=== PATIENT | female | born 1930 | race Caucasian/White ===

== ENCOUNTER 2018-02-06 08:18 | Emergency (ER) | payer OTHER ==
[~2018-02-06] VITALS: Ht 162.6 cm; Wt 61.2 kg
[~2018-02-06 08:18] MED LIST: CPR500 PO; ISR/30 PO; LEVO25TA5 PO; LISI-730 PO; MTR500 PO; NTRGSL/4 UT; PANT1TAB3 PO; POLY335025 PO; POTA20TA13 PO; RXC5 PO
[2018-02-06] MEDS ORDERED: ACETAMINOPHEN IV 650 MG in EMPTY BAG 0 ML IV STA (08:25)
[2018-02-06] MEDS ORDERED: NITROGLYCERIN 2% OINTMENT 30GM TUBE EXT ONE (08:30)
--- NOTE | 2018-02-06 08:35 | EMERGENCY ROOM VISIT NOTE ---
History Report prepared by Rodrigo: Inder Cobos Under the Supervision of: Dr. Kobi Michael M.D. First contact with patient: 08:21 Chief Complaint: SHORTNESS OF BREATH Stated Complaint: DIFF BREATHING History of Present Illness The patient is an 87 year old female who presents to the Emergency Room with complaints of persistent left sided chest pain. She rates the severity of the pain as a 7/10. There is no radiation of the pain, but it is worsened with deep inhalation. She complains of persistent shortness of breath for the past two days as well. The patient arrived to the Emergency Department via EMS who administered 2 sprays of Nitroglycerin, Aspirin, and a DuoNeb treatment. These medications improved her symptoms. She also complains of a headache. She denies any fevers or cough. The patient has no history of heart attack and does not wear oxygen at home. She did not take any of her morning medications. Source of History: patient Onset: Two days Position: chest (left) Symptom Intensity: 7/10 Timing: other (Persistent) Modifying Factors (Relieving): other (Nitro, aspirin, DuoNeb) Associated Symptoms: + headache, No fevers, No cough Review of Systems See HPI for pertinent positives & negatives. A total of 10 systems reviewed and were otherwise negative. Past Medical & Surgical Medical Problems: (1) Anxiety (2) Benign hypertension (3) Coronary artery disease (4) Placement of stent Family History Cancer Social History Smoking Status: Never Smoker Drug Use: none Marital Status: Housing Status: lives with family Occupation Status: retired Current/Historical Medications Scheduled Amitriptyline HCl (Amitriptyline HCl), 25 MG PO BID Amlodipine Besylate (Amlodipine Besylate), 5 MG PO DAILY Aspirin (Aspirin), 81 MG PO QPM Atenolol (Tenormin), 100 MG PO DAILY Atorvastatin (Lipitor), 10 MG PO DAILY Clonidine HCl (Clonidine HCl), 0.2 MG PO BID Clopidogrel Bisulfate (Clopidogrel), 75 MG PO DAILY Levothyroxine Sodium (Levothyroxine Sodium), 25 MCG PO DAILY Lisinopril (Lisinopril), 20 MG PO DAILY Potassium Chloride Microencaps (Potassium Chloride Er), 20 MEQ PO DAILY Ranitidine HCl (Ranitidine HCl), 150 MG PO HS Scheduled PRN Nitroglycerin (Nitrostat), 0.4 MG UT UD PRN for Chest Pain Allergies Coded Allergies: No Known Allergies (Unverified , 02/06/18) Physical Exam Vital Signs Date Time Temp Pulse Resp B/P (MAP) Pulse Ox O2 Delivery O2 Flow Rate FiO2 02/06/18 11:33 82 24 211/90 92 Room Air 02/06/18 10:35 55 20 176/77 97 Room Air 02/06/18 09:48 61 22 196/76 97 Room Air 02/06/18 08:31 66 02/06/18 08:25 36.4 68 18 192/84 97 Room Air 02/06/18 08:25 97 Room Air Physical Exam GENERAL: Patient is in no acute distress. HEENT: No acute trauma, normocephalic atraumatic, mucous membranes moist, no nasal congestion, no scleral icterus. NECK: No stridor, no adenopathy, no meningismus, trachea is midline. CHEST: Tender to the left anterior chest wall, along the medial breast. LUNGS: There are scattered crackles in the right lung, especially at the right base. No wheezing, left lung clear HEART: Without murmurs gallops or rubs, regular rate and rhythm. ABDOMEN: Soft, nontender, bowel sounds positive, no hernias, no peritonitis. EXTREMITIES: No cyanosis. Mild bilateral pedal edema, full range of motion of all the joints without pain or difficulty, no signs for acute trauma. NEUROLOGIC: Oriented x 3, no acute motor or sensory deficits, no focal weakness. SKIN: No rash, no jaundice, no diaphoresis. Medical Decision & Procedures ER Provider Diagnostic Interpretation: Radiology results as stated below per my review and radiologist interpretation: CHEST ONE VIEW PORTABLE CLINICAL HISTORY: EVALUATE RESPIRATORY DISTRESS.DYSPNEA COMPARISON STUDY: 03/24/2016 FINDINGS: Chronic elevation right hemidiaphragm. Mild stable cardia megaly. Surgical clips left axilla. No focal infiltrate. IMPRESSION: Chronic and postoperative change. No acute process. The above report was generated using voice recognition software. It may contain grammatical, syntax or spelling errors. Electronically signed by: Chandan Alvarez M.D. 02/06/2018 8:44 AM Dictated Date/Time: 02/06/2018 8:44 AM (CHEST FOR PE) ANGIO WITH CT DOSE: 184.75 mGy.cm HISTORY: Chest pain. Dyspnea. TECHNIQUE: Multiaxial CT images of the chest were performed following the intravenous administration of contrast to evaluate the pulmonary arteries. Maximal intensity projection images were also obtained. A dose lowering technique was utilized adhering to the principles of ALARA. COMPARISON STUDY: None. FINDINGS: There is a normal caliber thoracic aorta with no evidence for dissection. There is no evidence for pulmonary embolus. No pleural effusions. No pneumothorax. The liver and spleen are unremarkable. No mediastinal or hilar lymphadenopathy. The central airways are patent. The lungs are clear. Minimal basilar atelectasis. Moderate degenerative changes thoracic spine. IMPRESSION: No evidence for pulmonary embolus. No evidence for focal infiltrate. Minimal bibasilar atelectasis. The above report was generated using voice recognition software. It may contain grammatical, syntax or spelling errors. Electronically signed by: Chandan Alvarez M.D. 02/06/2018 9:59 AM Dictated Date/Time: 02/06/2018 9:49 AM Laboratory Results 02/06/18 07:49 Red Blood Count 5.37, Mean Corpuscular Volume 83.6, Mean Corpuscular Hemoglobin 26.6, Mean Corpuscular Hemoglobin Concent 31.8, Mean Platelet Volume 10.3, Neutrophils (%) (Auto) 56.4, Lymphocytes (%) (Auto) 30.9, Monocytes (%) (Auto) 9.8, Eosinophils (%) (Auto) 2.0, Basophils (%) (Auto) 0.7, Neutrophils # (Auto) 3.06, Lymphocytes # (Auto) 1.68, Monocytes # (Auto) 0.53, Eosinophils # (Auto) 0.11, Basophils # (Auto) 0.04 02/06/18 07:49 Test 02/06/18 07:49 02/06/18 08:53 White Blood Count 5.43 K/uL (4.8-10.8) Red Blood Count 5.37 M/uL (4.2-5.4) Hemoglobin 14.3 g/dL (12.0-16.0) Hematocrit 44.9 % (37-47) Mean Corpuscular Volume 83.6 fL (80-100) Mean Corpuscular Hemoglobin 26.6 pg (25-34) Mean Corpuscular Hemoglobin Concent 31.8 g/dl (32-36) Platelet Count 280 K/uL (130-400) Mean Platelet Volume 10.3 fL (7.4-10.4) Neutrophils (%) (Auto) 56.4 % Lymphocytes (%) (Auto) 30.9 % Monocytes (%) (Auto) 9.8 % Eosinophils (%) (Auto) 2.0 % Basophils (%) (Auto) 0.7 % Neutrophils # (Auto) 3.06 K/uL (1.4-6.5) Lymphocytes # (Auto) 1.68 K/uL (1.2-3.4) Monocytes # (Auto) 0.53 K/uL (0.11-0.59) Eosinophils # (Auto) 0.11 K/uL (0-0.5) Basophils # (Auto) 0.04 K/uL (0-0.2) RDW Standard Deviation 45.2 fL (36.4-46.3) RDW Coefficient of Variation 14.7 % (11.5-14.5) Immature Granulocyte % (Auto) 0.2 % Immature Granulocyte # (Auto) 0.01 K/uL (0.00-0.02) Anion Gap 8.0 mmol/L (3-11) Est Creatinine Clear Calc Drug Dose 49.0 ml/min Estimated GFR () 84.6 Estimated GFR (Non- 73.0 BUN/Creatinine Ratio 17.0 (10-20) Calcium Level 9.0 mg/dl (8.5-10.1) Total Bilirubin 0.7 mg/dl (0.2-1) Aspartate Amino Transf (AST/SGOT) 19 U/L (15-37) Alanine Aminotransferase (ALT/SGPT) 21 U/L (12-78) Alkaline Phosphatase 121 U/L (45-117) Troponin I < 0.015 ng/ml (0-0.045) Total Protein 7.4 gm/dl (6.4-8.2) Albumin 3.7 gm/dl (3.4-5.0) Globulin 3.7 gm/dl (2.5-4.0) Albumin/Globulin Ratio 1.0 (0.9-2) Thyroid Stimulating Hormone (TSH) 3.040 uIu/ml (0.300-4.500) Prothrombin Time 10.6 SECONDS (9.0-12.0) Prothromb Time International Ratio 1.0 (0.9-1.1) Activated Partial Thromboplast Time 24.9 SECONDS (21.0-31.0) Partial Thromboplastin Ratio 1.0 Laboratory results reviewed by me. Medications Administered Medications (Trade) Dose Ordered Sig/Meche Route Start Time Stop Time Status Last Admin Dose Admin Nitroglycerin (Nitroglycerin 2% Oint) 2 inch NOW ONCE EXT 02/06/18 08:30 02/06/18 08:32 DC 02/06/18 08:45 2 INCH Acetaminophen 650 mg/Empty Bag 65 ml @ 260 mls/hr NOW STAT IV 02/06/18 08:25 02/06/18 08:39 DC 02/06/18 08:46 260 MLS/HR Atenolol (Tenormin Tab) 100 mg NOW ONCE PO 02/06/18 09:15 02/06/18 09:16 DC 02/06/18 09:15 100 MG Al Hydroxide/Mg Hydroxide (Maalox Susp) 30 ml STK-MED ONCE .ROUTE 02/06/18 11:24 02/06/18 11:25 DC 02/06/18 11:26 30 ML Hydralazine HCl (HydrALAZINE INJ) 20 mg STK-MED ONCE .ROUTE 02/06/18 11:29 02/06/18 11:30 DC 02/06/18 11:32 20 MG Pantoprazole Sodium (Protonix Tab) 40 mg NOW STAT PO 02/06/18 11:44 02/06/18 12:43 DC 02/06/18 11:44 40 MG ECG Per My Interpretation Indication: chest pain, SOB/dyspnea Rate (beats per minute): 66 Rhythm: normal sinus Findings: nonspecific-ST abn, other (No DAVE, no PVCs) ED Course 0824: The patient was evaluated in room C6. A complete history and physical exam was performed. 0825: Ordered Acetaminophen 65 mL @ 250 mL/hr IV. 0830: Ordered Nitroglycerin 2 inch EXT 0915: Ordered Atenolol 100 mg PO. 1019: I checked on the patient at this time. She is feeling better after treatment. The patient remains agreeable to an inpatient stay. 1037: I discussed the case with Dr. Jenn Kennedy Hospitalist. He will evaluate the patient for further treatment. Medical Decision Differential Diagnosis includes; musculoskeletal pain, myocardial infarction, aortic disease, pulmonary emboli, pneumonia, pneumothorax, and angina. There is no leukocytosis or concerning anemia. No significant electrolyte abnormality, kidney failure or hepatitis. EKG shows a normal sinus rhythm, no acute ischemia. Cardiac enzyme testing 1 is not consistent with acute cardiac injury. Chest x-ray does not show pneumonia, mediastinal widening or pneumothorax. Chest CT does not show PE, no evidence for aortic dissection. On exam, the patient did have some reproducible left chest pain by palpation. The patient had already received oral aspirin, no further aspirin was given. She was given IV Tylenol, nitroglycerin paste. She received her normal dose of oral metoprolol. The patient's pain is somewhat improved, she seems comfortable. At this point, the cause for the pain is unclear, given her age and cardiac risk factors, further cardiac workup was felt warranted. She requires a hospital stay. I spoke with the patient and case management. The on-call hospitalist was consulted. Medication Reconcilliation Current Medication List: was personally reviewed by me Blood Pressure Screening Patient's blood pressure: Elevated blood pressure Referred to hospitalist. Consults Time Called: 1030 Consulting Physician: Dr. Jenn Kennedy Hospitalist Returned Call: 1037 I discussed the case with Dr. Jenn Kennedy Hospitalist. He will evaluate the patient for further treatment. Impression Primary Impression: Left sided chest pain Additional Impression: SOB (shortness of breath) Scribe Attestation The scribe's documentation has been prepared under my direction and personally reviewed by me in its entirety. I confirm that the note above accurately reflects all work, treatment, procedures, and medical decision making performed by me. Departure Information Dispostion Being Evaluated By Hospitalist Patient Instructions My [facility] Problem Qualifiers
[2018-02-06 08:40] LABS: BASO % 0.7 %; BASO ABS # 0.04 K/uL (0-0.2); EOS ABS # 0.11 K/uL (0-0.5); HEMATOCRIT 44.9 % (37-47); HEMOGLOBIN 14.3 g/dL (12.0-16.0); IG# 0.01 K/uL (0.00-0.02); LYMPH % 30.9 %; LYMPH ABS # 1.68 K/uL (1.2-3.4); MEAN CELL VOLUME 83.6 fL (80-100); MEAN CORPUSCULAR HEMOGLOBIN 26.6 pg (25-34); MEAN CORPUSCULAR HGB CONC 31.8 g/dl (32-36); MEAN PLATELET VOLUME 10.3 fL (7.4-10.4); MONO % 9.8 %; MONO ABS # 0.53 K/uL (0.11-0.59); NEUT % 56.4 %; NEUT ABS # 3.06 K/uL (1.4-6.5); PLATELET COUNT 280 K/uL (130-400); RED CELL DISTRIBUTION WIDTH CV 14.7 % (11.5-14.5); RED CELL DISTRIBUTION WIDTH SD 45.2 fL (36.4-46.3); WHITE BLOOD COUNT 5.43 K/uL (4.8-10.8)
[2018-02-06] MEDS ORDERED: OPTIRAY 320 IV PRN (08:45)
--- NOTE | 2018-02-06 08:45 | DIAGNOSTIC IMAGING REPORT ---
CHEST ONE VIEW PORTABLE CLINICAL HISTORY: EVALUATE RESPIRATORY DISTRESS.DYSPNEA COMPARISON STUDY: 03/24/2016 FINDINGS: Chronic elevation right hemidiaphragm. Mild stable cardia megaly. Surgical clips left axilla. No focal infiltrate. IMPRESSION: Chronic and postoperative change. No acute process. The above report was generated using voice recognition software. It may contain grammatical, syntax or spelling errors. Electronically signed by: Chanadn Alvarez M.D. 02/06/2018 8:44 AM Dictated Date/Time: 02/06/2018 8:44 AM
[2018-02-06 08:56] LABS: ALBUMIN 3.7 gm/dl (3.4-5.0); ALKALINE PHOSPHATASE 121 U/L (45-117); ALT/SGPT 21 U/L (12-78); AST/SGOT 19 U/L (15-37); BLOOD UREA NITROGEN 12 mg/dl (7-18); CARBON DIOXIDE 25 mmol/L (21-32); CREATININE 0.73 mg/dl (0.60-1.20); GLUCOSE 113 mg/dl (70-99); POTASSIUM 3.3 mmol/L (3.5-5.1); SODIUM 140 mmol/L (136-145); TOTAL PROTEIN 7.4 gm/dl (6.4-8.2)
[2018-02-06] MEDS ORDERED: LPT10 PO (09:02)
[2018-02-06] MEDS ORDERED: CTP2 PO (09:02)
[2018-02-06] MEDS ORDERED: AMT25 PO (09:02)
[2018-02-06] MEDS ORDERED: ASPI-461 PO (09:02)
[2018-02-06] MEDS ORDERED: PLV75 PO (09:02)
[2018-02-06] MEDS ORDERED: RANI150T2 PO (09:02)
[2018-02-06] MEDS ORDERED: NRV/5 PO (09:02)
[2018-02-06] MEDS ORDERED: LISI-726 PO (09:02)
[2018-02-06 09:12] LABS: PTT PATIENT 24.9 SECONDS (21.0-31.0)
--- NOTE | 2018-02-06 10:00 | DIAGNOSTIC IMAGING REPORT ---
(CHEST FOR PE) ANGIO WITH CT DOSE: 184.75 mGy.cm HISTORY: Chest pain. Dyspnea. TECHNIQUE: Multiaxial CT images of the chest were performed following the intravenous administration of contrast to evaluate the pulmonary arteries. Maximal intensity projection images were also obtained. A dose lowering technique was utilized adhering to the principles of ALARA. COMPARISON STUDY: None. FINDINGS: There is a normal caliber thoracic aorta with no evidence for dissection. There is no evidence for pulmonary embolus. No pleural effusions. No pneumothorax. The liver and spleen are unremarkable. No mediastinal or hilar lymphadenopathy. The central airways are patent. The lungs are clear. Minimal basilar atelectasis. Moderate degenerative changes thoracic spine. IMPRESSION: No evidence for pulmonary embolus. No evidence for focal infiltrate. Minimal bibasilar atelectasis. The above report was generated using voice recognition software. It may contain grammatical, syntax or spelling errors. Electronically signed by: Chandan Alvarez M.D. 02/06/2018 9:59 AM Dictated Date/Time: 02/06/2018 9:49 AM
[2018-02-06] MEDS ORDERED: ALUMINUM/MAGNESIUM SUSP 30 ML UDC ONE (11:24)
[2018-02-06] MEDS ORDERED: HydrALAZINE HCL 20 MG/ML VIAL ONE (11:29)
[2018-02-06] MEDS ORDERED: NURSING VERBAL MED ORDER ONE ×2 (11:30)
[2018-02-06] MEDS ORDERED: PANTOprazole SOD 40 MG TAB PO STA (11:44)
[2018-02-06] MEDS ORDERED: MAGNESIUM HYDROXIDE SUSP 30 ML UDC PO PRN (11:45)
[2018-02-06] MEDS ORDERED: HydrALAZINE HCL 20 MG/ML VIAL IV. PRN (11:45)
[2018-02-06] MEDS ORDERED: ONDANSETRON INJ 2 MG/ML 2 ML VIAL IV PRN (11:45)
[2018-02-06] MEDS ORDERED: POLYETHYLENE (MIRALAX) 17 GM PACK PO PRN (11:45)
[2018-02-06] MEDS ORDERED: ACETAMINOPHEN 325 MG TAB PO PRN (11:45)
[2018-02-06] MEDS ORDERED: NITROGLYCERIN 0.4 MG SL PER TAB CHARGE UT PRN (11:45)
[2018-02-06] MEDS ORDERED: DICLOFENAC SOD 1% GEL 100 GM TUBE EXT PRN (11:45)
[2018-02-06] MEDS ORDERED: ALUMINUM/MAGNESIUM/SIMETH (MAALOX MAX) 30 ML UDC PO PRN ×2 (11:45)
[2018-02-06] MEDS ORDERED: ZOLPIDEM TARTRATE 5 MG TAB PO PRN (11:45)
[2018-02-06] MEDS ORDERED: NITROGLYCERIN 0.4 MG SL PER TAB CHARGE SL PRN (11:45)
--- NOTE | 2018-02-06 11:56 | History and Physical ---
History & Physical Date of Service Feb 06, 2018. History & Physical chest pain, headache,HTN, [id number]
[2018-02-06 12:03] VITALS: Ht 162.6 cm; Wt 61.2 kg
--- NOTE | 2018-02-06 12:56 | HISTORY & PHYSICAL EXAMINATION ---
DATE OF ADMISSION: 02/07/2016 This is observation H and P, 35 minutes. CHIEF COMPLAINT: Shortness of breath and chest pain. HISTORY OF PRESENT ILLNESS: An 87-year-old white female with significant past medical history of CAD, stent, anxiety, hypertension, hypothyroidism, dyslipidemia, appendectomy, left breast mass excision and also has a history of acute gallstone pancreatitis, coming to the hospital Emergency Department because of the above chief complaint. Patient reported left-sided chest pain which has been persistent, 7/10. No radiations, getting worse when deep inhale. Associated with persistent shortness of breath for [address] to the hospital, she got 2 sprays of nitroglycerin, aspirin and DuoNeb treatment. Medication helped for the symptom of the chest pain. She complained about headache recently. Denied fever and chills. In the Emergency Room, the chest pain seems reproducible in the middle of the chest. She was saying right there. She had a cardiac enzyme, troponin checked which were negative x1 set. Chest CT was done and has no acute PE. However, she was having persistent chest pain. Blood pressure was elevated up to 211/90. When I interviewed with her, she was anxious with fast respiratory rate at 26. Continues to complain about headache. She was conversational, knew her birthday, name and place. Denied fever or chills. Denied cough, sputum, or hemoptysis. Denied left-sided chest pain or radiations. Denied palpitation or lower extremity swelling. No nausea, vomiting, abdominal pain, diarrhea or constipation. Denied dysuria, urgency or frequencies. Denied facial droop, slurry speeches or local weakness. Otherwise, 14-point organ system review was negative. ALLERGIES: No known drug allergies. PAST MEDICAL HISTORY: Includes CAD S/P stent, anxiety, hypertension, hypothyroidism, dyslipidemia. PAST SURGICAL HISTORY: Appendectomy, left breast mass excision, gallbladder stone, pancreatitis. FAMILY HISTORY: Include cancer, SOCIAL HISTORY: Never smoked. , lives with family, retired. Son's name is Sid. His number is [phone]. CURRENT MEDICATIONS: Taking at home which include amitriptyline 25 mg p.o. b.i.d., amlodipine 5 mg p.o. daily, aspirin 81 mg p.o. q.p.m., atenolol 100 mg p.o. daily, atorvastatin 100 mg p.o. daily, clonidine 0.2 mg p.o. b.i.d., clopidogrel 75 mg p.o. daily, levothyroxine 25 mcg p.o. daily, lisinopril 20 mg p.o. daily, potassium chloride 20 mEq p.o. daily, ranitidine 150 mg p.o. at bedtime, nitroglycerin 0.4 mg use as needed. PHYSICAL EXAMINATION: VITAL SIGNS: Temperature 36.4, pulse 68, respiratory rate 18, blood pressure 192/84, pulse ox was 97% in room air. GENERAL: patient is white female, awake, alert, oriented, mildly anxious and mild labored breathing, respiratory rate up to 26 per minute. HEAD: Normocephalic. EYES: Pupils equal, round, responds to light. EARS: Ear was normal. NOSE: Normal. NECK: Supple. Thyroid no enlargement. Trachea midline. HEART: Regular rhythm. S1, S2. LUNGS: Decreased breathing sounds. There were no wheezing, rhonchi or crackles. ABDOMEN: Soft, nontender. Bowel sound was positive. Bilateral CVA was nontender. EXTREMITIES: Bilateral lower extremities, no swelling. Homans sign was negative. Calf was nontender. No signs of acute trauma. NEUROLOGICAL EVALUATION: Cranial nerves through XII were intact. There were no local deficits. Moves upper and lower extremities. SKIN: Has no rashes. LABORATORY STUDIES: WBC 5, hemoglobin 14, platelet 280. PT/INR was 10/1. Sodium 140, potassium 3.3. Chloride 107. BUN 12, creatinine 0.7. Blood glucose 113. AST 90, ALT 21. Alkaline phosphate 121. Troponin less than 0.015. Total protein 7.4, albumin 3.7. Chest CT studies, there was no evidence of PE, no evidence of infiltrations. EKGs in the Emergency Room, normal sinus rhythm, left axis deviations, minimal voltage criteria of left ventricular hypertrophy. ASSESSMENT AND PLAN: An 87-year-old with the conditions, see below: 1. Chest pain, likely musculoskeletal which is reproducible. Patient said the chest pain is right in there, other differential diagnoses include acute coronary syndrome, gastroesophageal reflux disease, 2, headache, 3. accelerated significant hypertension. 4. History of coronary artery disease and stent. 5. History of hypothyroidism. 6. Hypokalemia. 7. Anxiety histories. 8. History of gastroesophageal reflux disease. PLAN: Patient has significant chest pain, likely atypical chest pain which is musculoskeletal. Because it was reproducible; however, she is an 87-year-old although is awake, alert, and oriented, but possible not able to report symptoms accurately. Also, she has history of CAD, stent. 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 In that regards, therefore, we will care the patient in the hospital as observation, chest pain rule out by checking cardiac enzyme and troponin. If 3 sets of cardiac enzyme troponin are negative, probably not need to do the stress test because it is majorly reproducible chest pain. At the same time we will give Maalox for the possible GERD which caused heartburn. At the same time we will start Protonix p.o. For the possible musculoskeletal pain, we can give some Voltaren cream topical use. For the accelerated hypertension, we will restart home medication, ordered hydralazine p.r.n. as needed. Continue home medications including aspirin, amlodipine, atenolol. We will check fasting lipid panel and TSH levels. We will continue home medication of atorvastatin, levothyroxine. We will replace potassium. Discussed with patient about the code status. She wants to be full code, I called the patient's son whose name is Sid with number of [phone], left message for him to call us back. GI and DVT prophylaxis ordered. The patient is full code. CM
--- NOTE | 2018-02-06 13:03 | DIAGNOSTIC IMAGING REPORT ---
HEAD WITHOUT CONTRAST (CT) CT DOSE: 638.56 mGycm HISTORY: Mental status change headache and HTN TECHNIQUE: Multiaxial CT images of the head were performed without the use of intravenous contrast. A dose lowering technique was utilized adhering to the principles of ALARA. Comparison: 12/05/2013 Findings: The paranasal sinuses and mastoid air cells are clear. The calvarium and skull base are intact. The ventricles and sulci are within normal limits. There is no mass, hematoma, midline shift, or acute infarct. Impression: No acute intracranial abnormality. The above report was generated using voice recognition software. It may contain grammatical, syntax or spelling errors. Electronically signed by: Chandan Alvarez M.D. 02/06/2018 1:01 PM Dictated Date/Time: 02/06/2018 1:00 PM
[2018-02-06 13:38] VITALS: BP 197/82; PULSE 66; TEMP 36.3; O2SAT 97
[2018-02-06] MEDS ORDERED: IV FLUIDS COMPLETED PRN (13:45)
[2018-02-06 15:08] VITALS: BP 176/76; PULSE 64; TEMP 36.8; O2SAT 96
[2018-02-06] MEDS: NSS + 20MEQ KCL 1000ML 1,000 ML IV SCH ×2 (15:11→18:50)
[2018-02-06] MEDS: ENOXAPARIN 40 MG/0.4 ML SYR SC SCH (15:30)
[2018-02-06 19:00] VITALS: BP 175/72; PULSE 60; TEMP 36.6; O2SAT 97
[2018-02-06] MEDS ORDERED: ATEN100T PO (19:01)
[2018-02-06 20:30] VITALS: O2SAT 97
[2018-02-06] MEDS ORDERED: ASPIRIN 81 MG ECTAB PO SCH (21:00)
[2018-02-06] MEDS ORDERED: CLONIDINE HCL 0.2 MG TAB PO SCH (21:00)
[2018-02-06] MEDS ORDERED: RANITIDINE HCL 150 MG TAB PO SCH (21:00)
[2018-02-06] MEDS: AMITRIPTYLINE HCL 25 MG TAB PO SCH (21:32)
[2018-02-06] MEDS: CLONIDINE HCL 0.1 MG TAB PO SCH (21:32)
[2018-02-06 23:09] VITALS: BP 150/77; PULSE 62; TEMP 36.6; O2SAT 96
[2018-02-07 00:15] VITALS: O2SAT 96
[2018-02-07 03:30] VITALS: BP 150/76; PULSE 61; TEMP 37.3; O2SAT 94
[2018-02-07] MEDS ORDERED: LEVOTHYROXINE 25 MCG TAB PO SCH (06:00)
[2018-02-07 06:45] LABS: BLOOD UREA NITROGEN 10 mg/dl (7-18); CALCIUM 8.3 mg/dl (8.5-10.1); CARBON DIOXIDE 24 mmol/L (21-32); CREATININE 0.59 mg/dl (0.60-1.20); GLUCOSE 83 mg/dl (70-99); POTASSIUM 3.8 mmol/L (3.5-5.1); SODIUM 141 mmol/L (136-145)
[2018-02-07 06:50] LABS: CHOLESTEROL 111 mg/dl (0-200); LDL CHOLESTEROL CALCULATED 57 mg/dl; PHOSPHORUS 3.2 mg/dl (2.5-4.9)
[2018-02-07 07:13] VITALS: BP 177/73; PULSE 65; TEMP 36.7; O2SAT 97
[2018-02-07] MEDS: AMITRIPTYLINE HCL 25 MG TAB PO SCH (08:03)
[2018-02-07] MEDS: CLONIDINE HCL 0.1 MG TAB PO SCH (08:03)
[2018-02-07] MEDS ORDERED: AMLODIPINE BESYLATE 5 MG TAB PO SCH (09:00)
[2018-02-07] MEDS ORDERED: PANTOprazole SOD 40 MG TAB PO SCH (09:00)
[2018-02-07] MEDS ORDERED: CLOPIDOGREL BISULFATE 75 MG TAB PO SCH (09:00)
[2018-02-07] MEDS ORDERED: LISINOPRIL 20 MG TAB PO SCH (09:00)
[2018-02-07] MEDS ORDERED: POTASSIUM CHLORIDE 20 MEQ TABCR PO SCH (09:00)
[2018-02-07] MEDS ORDERED: ATORVASTATIN 10 MG TAB PO SCH (09:00)
[2018-02-07] MEDS ORDERED: PANT1TAB4 PO (09:27)
--- NOTE | 2018-02-07 09:32 | Discharge Instructions ---
Discharge Instructions Date of Service Feb 07, 2018. Admission Reason for Admission: Left Sided Chest Pain, Sob (Shortness Of Breath) Discharge Discharge Diagnosis / Problem: Left Sided Chest Pain Discharge Goals Goal(s): Decrease discomfort, Improve function, Increase independence Activity Recommendations Activity Limitations: resume your previous activity . Instructions / Follow-Up Instructions / Follow-Up Chest Pain: - You were admitted for chest pain on the L side. Thankfully your cardiac markers (blood test to look for heart damage) were negative. - Your pain improved after using Maalox with this may have been some GI "stomach " issues - sometimes the esophagus can even spasm causing some chest pain. - Recommend to continue your normal home medications. Will give a prescription of Protonix 40 mg once day for 14 days. This is an acid reducing medication and you can take this in the morning and continue your Ranitidine at night. If you no longer have any chest pain or issues you can stop the Protonix. - There may have been some musculoskeletal component too given that pain came on with pushing on the chest. Recommend to use warm compresses if needed or can use over the counter pain creams if this helps give relief. - Recommend to follow-up with your family doctor in the next 7-10 days and our drug abuse social worker can help set up an appointment and can call you Current Hospital Diet Patient's current hospital diet: AHA Diet (Heart Healthy) Discharge Diet Recommended Diet: AHA Diet (Heart Healthy) Pending Studies Studies pending at discharge: no Laboratory Results Lipid Panel Test 02/07/18 05:52 Range/Units Triglycerides Level 63 0-150 mg/dl Cholesterol Level 111 0-200 mg/dl HDL Cholesterol 41 mg/dl Cholesterol/HDL Ratio 2.7 LDL Cholesterol, Calculated 57 mg/dl Medical Emergencies . Who to Call and When: Medical Emergencies: If at any time you feel your situation is an emergency, please call 911 immediately. . Non-Emergent Contact Non-Emergency issues call your: Primary Care Provider Call Non-Emergent contact if: you have a fever, your pain is concerning you, you have any medication questions . . "Provider Documentation" section prepared by Seema Clemens. .
[2018-02-07] MEDS ORDERED: ALUMINUM/MAGNESIUM/SIMETH (MAALOX MAX) 30 ML UDC PO STA (11:07)
[2018-02-07] MEDS: NSS + 20MEQ KCL 1000ML 1,000 ML IV SCH (11:17)
[2018-02-07 11:29] VITALS: BP 192/79; PULSE 64; TEMP 36.8; O2SAT 96
[2018-02-07] MEDS: ENOXAPARIN 40 MG/0.4 ML SYR SC SCH (15:00)
[2018-02-07 15:04] VITALS: BP 192/79; PULSE 64; TEMP 36.8; O2SAT 96
--- NOTE | 2018-02-07 16:30 | Discharge Summary ---
Discharge Summary Date of Service Feb 07, 2018. Discharge Summary Admission Date: Feb 06, 2018 at 11:54 Discharge Date: Feb 07, 2018 Discharge Disposition: Home Principal Diagnosis: Atypical Chest Pain Problems/Secondary Diagnoses: 1. CAD S/P PCI 2. Anxiety 3. Hypertension 4. Hypothyroidism 5. HLD 6. Appendectomy 7. L Breast Mass Excision Immunizations: Have You Had Influenza Vaccine: Unknown Influenza Vaccine Date: May 20, 2013 History of Tetanus Vaccine?: Unknown History of Pneumococcal: Unknown History of Hepatitis B Vaccine: Unknown Procedures: (CHEST FOR PE) ANGIO WITH FINDINGS: There is a normal caliber thoracic aorta with no evidence for dissection. There is no evidence for pulmonary embolus. No pleural effusions. No pneumothorax. The liver and spleen are unremarkable. No mediastinal or hilar lymphadenopathy. The central airways are patent. The lungs are clear. Minimal basilar atelectasis. Moderate degenerative changes thoracic spine. IMPRESSION: No evidence for pulmonary embolus. No evidence for focal infiltrate. Minimal bibasilar atelectasis. HEAD WITHOUT CONTRAST (CT) Findings: The paranasal sinuses and mastoid air cells are clear. The calvarium and skull base are intact. The ventricles and sulci are within normal limits. There is no mass, hematoma, midline shift, or acute infarct. Impression: No acute intracranial abnormality. Medication Reconciliation New Medications: Pantoprazole (Pantoprazole Sodium) 40 Mg Tab 40 MG PO QAM for 14 Days, #14 TAB Continued Medications: Amitriptyline HCl (Amitriptyline HCl) 25 Mg Tab 25 MG PO BID Amlodipine Besylate (Amlodipine Besylate) 5 Mg Tab 5 MG PO DAILY Aspirin (Aspirin) 81 Mg Tab 81 MG PO QPM Atenolol (Tenormin) 100 Mg Tab 100 MG PO DAILY Atorvastatin (Lipitor) 10 Mg Tab 10 MG PO DAILY Clonidine HCl (Clonidine HCl) 0.2 Mg Tab 0.2 MG PO BID Clopidogrel Bisulfate (Clopidogrel) 75 Mg Tab 75 MG PO DAILY Levothyroxine Sodium (Levothyroxine Sodium) 25 Mcg Tab 25 MCG PO DAILY Lisinopril (Lisinopril) 20 Mg Tab 20 MG PO DAILY Nitroglycerin (Nitrostat) 0.4 Mg Tab 0.4 MG UT UD PRN for Chest Pain Potassium Chloride Microencaps (Potassium Chloride Er) 20 Meq Tab 20 MEQ PO DAILY Ranitidine HCl (Ranitidine HCl) 150 Mg Tab 150 MG PO HS Discharge Exam Review of Systems: Constitutional: No fever, No chills ENT: No nasal symptoms, No sore throat, No trouble swallowing Respiratory: No cough, No shortness of breath Cardiovascular: No chest pain Abdomen: No pain, No nausea, No vomiting, No diarrhea, No constipation Musculoskeletal: No swelling, No calf pain Genitourinary - Female: No dysuria Hematologic / Lymphatic: + problem reported (easy bruising) Physical Exam: General Appearance: no apparent distress, + thin Eyes: sclerae normal ENT: hearing grossly normal Neck: supple, no JVD, trachea midline Respiratory/Chest: lungs clear, normal breath sounds, no respiratory distress, no accessory muscle use Cardiovascular: regular rate, rhythm Abdomen / GI: normal bowel sounds, non tender, soft Extremities: no calf tenderness, no pedal edema Neurologic/Psychiatric: alert, oriented x 3 Skin: normal color, warm/dry Hospital Course ADMISSION: An 87-year-old white female with significant past medical history of CAD, stent, anxiety, hypertension, hypothyroidism, dyslipidemia, appendectomy, left breast mass excision and also has a history of acute gallstone pancreatitis , coming to the hospital Emergency Department because of CP and SOB. Patient reported left-sided chest pain which has been persistent, 7/10. No radiations, getting worse when deep inhale. Associated with persistent shortness of breath for [address] to the hospital, she got 2 sprays of nitroglycerin, aspirin and DuoNeb treatment. Medication helped for the symptom of the chest pain. She complained about headache recently. Denied fever and chills. In the Emergency Room, the chest pain seems reproducible in the middle of the chest. She was saying right there. She had a cardiac enzyme, troponin checked which were negative x1 set. Chest CT was done and has no acute PE. However, she was having persistent chest pain. Blood pressure was elevated up to 211/90. When I interviewed with her, she was anxious with fast respiratory rate at 26. Continues to complain about headache. She was conversational, knew her birthday , name and place. Denied fever or chills. Denied cough, sputum, or hemoptysis. Denied left-sided chest pain or radiations. Denied palpitation or lower extremity swelling. No nausea, vomiting, abdominal pain, diarrhea or constipation. Denied dysuria, urgency or frequencies. Denied facial droop, slurry speeches or local weakness. Otherwise, 14-point organ system review was negative. HOSPITAL COURSE: Ms. Wong was admitted for SOB and CP. She was monitoring on telemetry which revealed NSR with 1st degree AV block. No other ischemic findings. Serial troponins were negative. Chest pain was relieved overnight with Maalox. Patient was combative overnight but appeared to have calmed down in the morning. She was cooperative with examination but initially did not want to take any medications. She does exhibit anxiety and some paranoia. Discussed with her son with patient's permission who states she gets worked up about chest pains and other aches very easily. She did develop the same chest pain after about 1-2 hours after breakfast. Again relieved with Maalox and at that time. Her blood pressure has been elevated and seems to have been chronically. She is on multiple medications for this. Did have recheck prior to discharge order placed which was 179/90 and again she is asymptomatic. May need titration of her medications and will defer to family doctor. She was hesitant to use medications here in the hospital which this waxed and waned. She appears to be easily forgetful. Discussed plan with son and gave written instructions. Given her pain was reproducible on admission did recommend she can use over the counter pain creams. Will also give Protonix 40 mg daily x 14 days to take in addition to her Ranitidine 150 mg HS (if she is willing to take this). Patient states she would like to go home. She is stable to return home with her son. Total Time Spent: Greater than 30 minutes This includes examination of the patient, discharge planning, medication reconciliation, and communication with other providers. Discharge Instructions Please refer to the electronic Patient Visit Report (Discharge Instructions) for additional information. Additional Copies To Bernard Rogers D.O.
== END 2018-02-07 15:40 | disposition home or self-care (01) ==
LOC: EDBD 08:18 → C.EDC 08:19 → C.2T 11:54 → ENRESERV 12:14 → C.2T 14:47
PROVIDERS: ADMIT Hospitalist; ATTEND Internal Medicine
DX: R07.89 Other chest pain (principal); I25.10 Atherosclerotic heart disease of native coronary artery without angina pectoris; F41.9 Anxiety disorder, unspecified; I10 Essential (primary) hypertension; E03.9 Hypothyroidism, unspecified; E78.5 Hyperlipidemia, unspecified; Z79.82 Long term (current) use of aspirin; Z79.899 Other long term (current) drug therapy

== ENCOUNTER 2018-03-22 22:36 | Emergency (ER) | payer OTHER ==
[~2018-03-22] VITALS: Ht 152.4 cm; Wt 63.7 kg
[~2018-03-22 22:36] MED LIST changes: +AMT25 PO; +ASPI-461 PO; +ATEN100T PO; -CPR500 PO; +CTP2 PO; -ISR/30 PO; +LISI-726 PO; -LISI-730 PO; +LPT10 PO; -MTR500 PO; +NRV/5 PO; -PANT1TAB3 PO; +PANT1TAB4 PO; +PLV75 PO; -POLY335025 PO; +RANI150T2 PO; -RXC5 PO
[2018-03-22 22:45] VITALS: O2SAT 97
[2018-03-22 22:57] VITALS: Ht 152.4 cm; Wt 63.7 kg
--- NOTE | 2018-03-22 23:00 | EMERGENCY ROOM VISIT NOTE ---
History Report prepared by Rodrigo: Inder Cobos Under the Supervision of: Dr. Grayson Herbert M.D. First contact with patient: 22:36 Stated Complaint: AGITATED/HEAD & CHEST PRESSURE History of Present Illness The patient is an 87 year old white female with a past medical history of hypertension, anxiety, and CAD who presents to the Emergency Room with complaints of persistent difficulty breathing for the past two days. The patient states that she took a pill for "restlessness" 2 days ago and felt her head hurting and chest "pressure." The headache and chest pain are resolved at this time. She has no current headache or chest pain. The patient denies any fever, nausea, or vomiting. Source of History: patient Onset: 2 days ago Position: chest (Breathing difficulty ) Quality: other (Dyspnea) Timing: other (persistent) Associated Symptoms: No fevers, No nausea, No vomiting Review of Systems See HPI for pertinent positives and negatives. A total of ten systems were reviewed and were otherwise negative. Past Medical & Surgical Medical Problems: (1) Anxiety (2) Benign hypertension (3) Coronary artery disease (4) Placement of stent Family History Cancer Social History Smoking Status: Never Smoker Drug Use: none Marital Status: Housing Status: lives with family Occupation Status: retired Current/Historical Medications Scheduled Amitriptyline HCl (Amitriptyline HCl), 25 MG PO BID Amlodipine Besylate (Amlodipine Besylate), 5 MG PO DAILY Aspirin (Aspirin), 81 MG PO QPM Atenolol (Tenormin), 100 MG PO DAILY Atorvastatin (Lipitor), 10 MG PO DAILY Clonidine HCl (Clonidine HCl), 0.2 MG PO BID Clopidogrel Bisulfate (Clopidogrel), 75 MG PO DAILY Levothyroxine Sodium (Levothyroxine Sodium), 25 MCG PO DAILY Lisinopril (Lisinopril), 20 MG PO DAILY Pantoprazole (Pantoprazole Sodium), 40 MG PO QAM Potassium Chloride Microencaps (Potassium Chloride Er), 20 MEQ PO DAILY Ranitidine HCl (Ranitidine HCl), 150 MG PO HS Scheduled PRN Nitroglycerin (Nitrostat), 0.4 MG UT UD PRN for Chest Pain Allergies Coded Allergies: No Known Allergies (Unverified , 03/22/18) Physical Exam Vital Signs Date Time Temp Pulse Resp B/P (MAP) Pulse Ox O2 Delivery O2 Flow Rate FiO2 03/23/18 00:38 196/74 03/22/18 23:49 56 21 187/73 99 Room Air 03/22/18 23:48 187/73 03/22/18 23:36 69 29 03/22/18 22:45 59 03/22/18 22:45 97 Room Air 03/22/18 22:45 96 Room Air 03/22/18 22:45 36.6 60 22 / 99 Room Air 03/22/18 22:37 / Physical Exam GENERAL: Awake, alert, well-appearing, NAD HENT: Normocephalic, atraumatic. EYES: Normal conjunctiva. Sclera non-icteric. PERRL. No anisocoria. NECK: Supple. No nuchal rigidity. FROM. RESPIRATORY: CTAB, no rhonchi, wheezing, crackles CARDIAC: RRR, no MRG ABDOMEN: Soft, NTND, BS+ MSK: No chest wall TTP, no LE edema. No calf pain, negative Homans' sign. NEURO: GCS 15, CN 2-12 intact, moves all 4s on command SKIN: No rash or jaundice noted. Medical Decision & Procedures ER Provider Diagnostic Interpretation: Radiology results as stated below per my review: CHEST X-RAY: Trachea is midline. Costodiaphragmatic angles are well demarcated. There is elevation of the right hemidiaphragm. The cardiac silhouette is normal in size. There is no evidence of pneumonia or pneumothorax. There is atherosclerosis of the aorta. Appears to have surgical bharath in the left chest. Bony elements are grossly intact. Laboratory Results 03/22/18 23:14 Red Blood Count 5.39, Mean Corpuscular Volume 82.7, Mean Corpuscular Hemoglobin 26.3, Mean Corpuscular Hemoglobin Concent 31.8, Mean Platelet Volume 10.5, Neutrophils (%) (Auto) 56.1, Lymphocytes (%) (Auto) 28.2, Monocytes (%) (Auto) 12.7, Eosinophils (%) (Auto) 2.2, Basophils (%) (Auto) 0.5, Neutrophils # (Auto ) 3.30, Lymphocytes # (Auto) 1.66, Monocytes # (Auto) 0.75, Eosinophils # (Auto ) 0.13, Basophils # (Auto) 0.03 03/22/18 23:14 Test 03/22/18 23:14 03/22/18 23:47 White Blood Count 5.89 K/uL (4.8-10.8) Red Blood Count 5.39 M/uL (4.2-5.4) Hemoglobin 14.2 g/dL (12.0-16.0) Hematocrit 44.6 % (37-47) Mean Corpuscular Volume 82.7 fL (80-100) Mean Corpuscular Hemoglobin 26.3 pg (25-34) Mean Corpuscular Hemoglobin Concent 31.8 g/dl (32-36) Platelet Count 243 K/uL (130-400) Mean Platelet Volume 10.5 fL (7.4-10.4) Neutrophils (%) (Auto) 56.1 % Lymphocytes (%) (Auto) 28.2 % Monocytes (%) (Auto) 12.7 % Eosinophils (%) (Auto) 2.2 % Basophils (%) (Auto) 0.5 % Neutrophils # (Auto) 3.30 K/uL (1.4-6.5) Lymphocytes # (Auto) 1.66 K/uL (1.2-3.4) Monocytes # (Auto) 0.75 K/uL (0.11-0.59) Eosinophils # (Auto) 0.13 K/uL (0-0.5) Basophils # (Auto) 0.03 K/uL (0-0.2) RDW Standard Deviation 43.5 fL (36.4-46.3) RDW Coefficient of Variation 14.4 % (11.5-14.5) Immature Granulocyte % (Auto) 0.3 % Immature Granulocyte # (Auto) 0.02 K/uL (0.00-0.02) Prothrombin Time 10.1 SECONDS (9.0-12.0) Prothromb Time International Ratio 1.0 (0.9-1.1) Activated Partial Thromboplast Time 21.6 SECONDS (21.0-31.0) Partial Thromboplastin Ratio 0.8 Anion Gap 10.0 mmol/L (3-11) Est Creatinine Clear Calc Drug Dose 43.5 ml/min Estimated GFR () 84.6 Estimated GFR (Non- 73.0 BUN/Creatinine Ratio 18.9 (10-20) Calcium Level 9.4 mg/dl (8.5-10.1) Magnesium Level 2.2 mg/dl (1.8-2.4) Troponin I < 0.015 ng/ml (0-0.045) Pro-B-Type Natriuretic Peptide 700 pg/ml (0-1800) Venous Blood pH 7.43 (7.36-7.41) Venous Blood Partial Pressure CO2 43 mmHg (38.0-50.0) Venous Blood Partial Pressure O2 23 mmHg Venous Blood HCO3 28 mmol/L Venous Blood Oxygen Saturation < 60.0 % Venous Blood Base Excess 2.9 mEq/L Laboratory results reviewed by me ECG Per My Interpretation Indication: SOB/dyspnea Rate (beats per minute): 59 Rhythm: sinus bradycardia Findings: 1st degree AV block, T-wave inversion (Lead III) Comparison ECG Date: 02/07/2018 Change: no significant change ED Course 2244: The patient was evaluated in room C3. A complete history and physical exam was performed. 0111: I reevaluated the patient. Discussed results and discharge instructions: She verbalized understanding and agreement. The patient is ready for discharge. Medical Decision The patient is an 87 year old white female with a past medical history of hypertension, anxiety, and CAD who presents to the Emergency Room with complaints of persistent difficulty breathing for the past two days. Nursing notes reviewed. Ancillary studies and prior records reviewed. Differential diagnosis: Etiologies such as infections, reactive airway disease, pneumonia, pneumothorax , COPD, CHF, cardiac ischemia, pulmonary embolism, musculoskeletal, gastrointestinal, as well as others were entertained. Patient was seen and evaluated the bedside. The patient was having some complaints of what she described as some trace shortness of breath. This is been very chronic. Patient denies any exertional symptoms. No prior history of DVT or PE. Patient does have some chronic lower extremity swelling that is fairly unchanged compared to prior. The patient has not had any cough fevers or chills. Patient did have blood work completed along with EKG, troponin, BNP, chest x- ray. Patient's chest x-ray does show a persistently elevated right hemidiaphragm but concerns for consolidation pneumothorax pleural effusion. The patient's EKG is fairly unchanged compared to prior with first degree AV block. Troponin and BNP are not elevated. Patient's white count is normal. Less likely infection. Given the patient's history and physical exam less likely DVT PE or ACS. Patient does have risk factors given her prior history of CAD however her lack of other concerning findings normal EKG no exertional symptoms diaphoresis nausea vomiting and normal undetectable troponin I believe this to be less likely. Upon reassessment patient does not feel any worse. Patient feels as though she has not been cared for at this time I did explain to the patient that it is a busy Saturday evening the patient states that she would like to go home. All questions were answered at this time. Believe she is suitable for outpatient follow-up and treatment at this time. Patient was given strict follow-up, discharge, and return precautions. All questions were answered. Patient was deemed suitable for outpatient follow-up at this time. Patient agreed with the plan of care and was safely discharged home. Medication Reconcilliation Current Medication List: was personally reviewed by me Blood Pressure Screening Patient's blood pressure: Elevated blood pressure Blood pressure disposition: Referred to PCP Impression Primary Impression: SOB (shortness of breath) Scribe Attestation The scribe's documentation has been prepared under my direction and personally reviewed by me in its entirety. I confirm that the note above accurately reflects all work, treatment, procedures, and medical decision making performed by me. Departure Information Dispostion Home / Self-Care Referrals Bernard Rogers D.O. (PCP) Patient Instructions Chest Pain - [facility], [facility] Additional Instructions Please return to the emergency department if you have worsening or recurrent symptoms not amenable to at-home treatment. Please call for a follow-up appointment with her primary care physician. Please take your medications as prescribed. If you have other concerns and/or complaints please feel free to also call your primary care physician's office or return the ED for further evaluation, management, and treatment. You may take tylenol 650 mg every 6 hours as needed for pain/fever unless told by your physician to not take it or have liver problems. Take your medications as prescribed. You have been examined and treated today on an emergency basis only. This is not a substitute for, or an effort to provide, complete comprehensive medical care. It is impossible to recognize and treat all injuries or illnesses in a single emergency department visit. It is therefore important that you follow up closely with [facility], your PCP, and/or your specialist(s). Call as soon as possible for an appointment. Thank you for your time and consideration. I look forward to speaking with you again soon. Please don't hesitate to call us if you have any questions.
[2018-03-22 23:24] LABS: BASO % 0.5 %; BASO ABS # 0.03 K/uL (0-0.2); EOS % 2.2 %; EOS ABS # 0.13 K/uL (0-0.5); HEMATOCRIT 44.6 % (37-47); HEMOGLOBIN 14.2 g/dL (12.0-16.0); IG# 0.02 K/uL (0.00-0.02); LYMPH % 28.2 %; LYMPH ABS # 1.66 K/uL (1.2-3.4); MEAN CELL VOLUME 82.7 fL (80-100); MEAN CORPUSCULAR HEMOGLOBIN 26.3 pg (25-34); MEAN CORPUSCULAR HGB CONC 31.8 g/dl (32-36); MEAN PLATELET VOLUME 10.5 fL (7.4-10.4); MONO % 12.7 %; MONO ABS # 0.75 K/uL (0.11-0.59); NEUT % 56.1 %; PLATELET COUNT 243 K/uL (130-400); RED CELL DISTRIBUTION WIDTH CV 14.4 % (11.5-14.5); RED CELL DISTRIBUTION WIDTH SD 43.5 fL (36.4-46.3); WHITE BLOOD COUNT 5.89 K/uL (4.8-10.8)
[2018-03-22 23:34] LABS: PTT PATIENT 21.6 SECONDS (21.0-31.0)
[2018-03-22 23:44] LABS: BLOOD UREA NITROGEN 14 mg/dl (7-18); CALCIUM 9.4 mg/dl (8.5-10.1); CARBON DIOXIDE 23 mmol/L (21-32); CREATININE 0.73 mg/dl (0.60-1.20); GLUCOSE 107 mg/dl (70-99); POTASSIUM 3.8 mmol/L (3.5-5.1); SODIUM 141 mmol/L (136-145)
[2018-03-23 02:17] VITALS: BP 196/74; PULSE 51; TEMP 36.6; O2SAT 96
--- NOTE | 2018-03-23 06:52 | DIAGNOSTIC IMAGING REPORT ---
CHEST ONE VIEW PORTABLE HISTORY: 87 years-old Female EVALUATE RESPIRATORY DISTRESS.DYSPNEA acute respiratory distress COMPARISON: Chest radiograph and CTA chest 02/06/2018 TECHNIQUE: Portable AP view of the chest FINDINGS: Cardiac silhouette is upper limits of normal in size. Coronary arterial stent graft projects of the left heart border. Calcification of the thoracic aorta. Moderate right hemidiaphragmatic elevation is unchanged. No pneumothorax, pleural effusion, focal airspace consolidation or overt pulmonary edema. Surgical clips project about the left axilla and abdominal right upper quadrant. Degenerative changes of the shoulders and spine. Mild levoscoliosis of the lumbar spine. IMPRESSION: No acute process. The above report was generated using voice recognition software. It may contain grammatical, syntax or spelling errors. Electronically signed by: Scooter Campos M.D. 03/23/2018 6:50 AM Dictated Date/Time: 03/23/2018 6:49 AM
== END 2018-03-23 02:39 | disposition home or self-care (01) ==
LOC: C.EDC 22:36
DX: R06.02 Shortness of breath (principal); F41.9 Anxiety disorder, unspecified; I10 Essential (primary) hypertension; I25.10 Atherosclerotic heart disease of native coronary artery without angina pectoris; Z79.82 Long term (current) use of aspirin; Z79.899 Other long term (current) drug therapy